=== PATIENT | male | born 2005 | race Caucasian/White ===

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

== ENCOUNTER 2023-12-05 17:53 | Emergency (ER) | payer OTHER ==
[~2023-12-05] VITALS: Ht 182.8 cm; Wt 124.7 kg
[2023-12-06] MEDS ORDERED: Bacitracin Zinc 14 GM TUBE T ONE (00:20)
[2023-12-06] MEDS ORDERED: Cyclobenzaprine Hydrochlorid 10 MG TAB PO ONE (00:20)
== END 2023-12-06 00:35 | disposition home or self-care (01) ==
LOC: ED 17:53
DX: S20.212A Contusion of left front wall of thorax, initial encounter (principal); V89.2XXA Person injured in unspecified motor-vehicle accident, traffic, initial encounter; Y93.89 Activity, other specified; Y92.89 Other specified places as the place of occurrence of the external cause; Y99.8 Other external cause status; F41.9 Anxiety disorder, unspecified; Z88.0 Allergy status to penicillin; Z88.1 Allergy status to other antibiotic agents